=== PATIENT | male | born 1970 | race Caucasian/White ===

== ENCOUNTER 2022-04-13 15:00 | Emergency (ER) | payer BC ==
[2022-04-13 15:37] VITALS: BP 136/86; PULSE 93; RESP 18; TEMP 98.2
[2022-04-13] MEDS ORDERED: LIDOCAINE-PRILOCAINE 2.5-2.5% CREAM 5 GM TUBE TOPICAL STA (16:10)
[2022-04-13] MEDS ORDERED: LIDOCAINE 1% INJ 10MG/ML (5 ML VIAL-PF) SQ ONE (16:11)
--- NOTE | 2022-04-13 16:15 | ED ---
General Adult HPI - General Chief complaint: Skin/Abscess/Foreign Body Stated complaint: cyst on tailbone Time Seen by Provider: 04/13/22 16:05 Source: patient, RN notes reviewed, old records reviewed Mode of arrival: ambulatory Limitations: no limitations - History of Present Illness Initial comments: 51-year-old male presents ambulatory with complaints of abscess to his left buttock since Friday. States has been increasing in size and more painful. Denies drainage. No nausea vomiting diarrhea or fevers. He has tried warm soaks with no relief. He has never had this in the past. Denies any medical history. No medication on a daily basis. Is a nonsmoker. -: days(s) (5) Location: buttocks, left Severity scale (1-10): 8 Quality: constant Consistency: constant Associated Symptoms: denies other symptoms Treatments Prior to Arrival: other (warm soaks) - Related Data Previous Rx's Medication Instructions Recorded Cephalexin [Keflex] 500 mg PO Q6HR 7 Days #28 cap 04/13/22 Allergies Allergy/AdvReac Type Severity Reaction Status Date / Time No Known Allergies Allergy Verified 04/13/22 15:37 Review of Systems ROS Statement: Those systems with pertinent positive or pertinent negative responses have been documented in the HPI. ROS Other: All systems not noted in ROS Statement are negative. Past Medical History Past Medical History: No Reported History History of Any Multi-Drug Resistant Organisms: None Reported Past Surgical History: Adenoidectomy, Tonsillectomy Additional Past Surgical History / Comment(s): uvula removed Past Psychological History: No Psychological Hx Reported Smoking Status: Never smoker Past Alcohol Use History: None Reported Past Drug Use History: None Reported General Exam Limitations: no limitations General appearance: alert, in no apparent distress Eye exam: Present: normal appearance Respiratory exam: Present: normal lung sounds bilaterally. Absent: respiratory distress, accessory muscle use Cardiovascular Exam: Present: regular rate, normal heart sounds Extremities exam: Present: full ROM, normal capillary refill. Absent: tenderness, pedal edema, calf tenderness Back exam: Present: normal inspection, full ROM. Absent: tenderness, CVA tenderness (R), CVA tenderness (L), rash noted Neurological exam: Present: alert, oriented X3, normal gait Psychiatric exam: Present: normal affect, normal mood Skin exam: Present: warm, dry, erythema (Approximately 6 cm x 4 cm area of erythema and induration with small pustule left intergluteal crease) Course Vital Signs 04/13/22 15:34 Temperature 98.2 F Pulse Rate 93 Respiratory 18 Rate Blood Pressure 136/86 O2 Sat by Pulse 96 Oximetry Procedures - Incision & Drainage Consent Obtained: verbal consent Site: buttock Anesthetic Used: lidocaine 1% (with emla) I&D Cleaning Method: Betadine Scalpel Used: #11 Needle Aspiration Performed?: No Irrigation Performed?: No I&D Drainage Obtained: Pus, Blood Culture Obtained?: Yes Patient Tolerated Procedure: well Medical Decision Making - Medical Decision Making EMLA was applied to the abscess and lidocaine injection prior to being opened and drained with an 11 blade scalpel and Betadine. Culture was sent. Patient was prescribed Keflex. Instructed to soak in a sitz bath 2-3 times a day to promote drainage and follow-up with his primary care doctor next week. Return to the emergency room with any new or concerning symptoms including increased pain, spreading redness and swelling or fevers. Case discussed with Dr. Galindo. Disposition Clinical Impression: Abscess and cellulitis of gluteal region Disposition: HOME SELF-CARE Condition: Good Instructions (If sedation given, give patient instructions): Abscess Incision and Drainage (ED), Sitz Bath (DC) Additional Instructions: Soak in a sitz bath 2-3 times a day to promote drainage and follow-up with your primary care doctor next week. Return to the emergency room with any new or concerning symptoms including increased pain, spreading redness and swelling or fevers. Prescriptions: Cephalexin [Keflex] 500 mg PO Q6HR 7 Days #28 cap Is patient prescribed a controlled substance at d/c from ED?: No Referrals: Morales Holcomb MD [Primary Care Provider] - 1-2 days Time of Disposition: 16:48
[2022-04-13] MEDS ORDERED: HYDROmorphone 1 MG/ML 1 ML SYRINGE IM STA (16:17)
== END 2022-04-13 17:44 | disposition home or self-care (01) ==
LOC: EC 15:00
DX: L02.31 Cutaneous abscess of buttock (principal); L03.317 Cellulitis of buttock
CPT/HCPCS: 87070; 87205; 99282; 10060; 96372; J2001